=== PATIENT | male | born 1955 | race Caucasian/White ===

== ENCOUNTER → 2023-09-26 13:48 | Outpatient (REF) | payer OTHER, SELFPAY | LOC: MRI 3T 13:48 | PROVIDERS: ATTENDING PHYSICIAN Physician Assistant; FAMILY PHYSICIAN Family Medicine | DX: M54.14 Radiculopathy, thoracic region (principal) | CPT/HCPCS: 72146 ==

== ENCOUNTER 2024-04-13 09:31 | Day surgery (SDC) | payer OTHER, SELFPAY ==
[2024-04-13] VITALS (7 sets, daily range): BP systolic 128–157; BP diastolic 70–75; BMI 24.1
[2024-04-13 10:17] LABS: Hematocrit 37.3 % (39.0-52.0); Hemoglobin 12.8 g/dL (13.0-18.0); Mean Corp Hgb Conc. 34.3 g/dL (33.0-37.0); Mean Corpuscular Hgb 30.3 pg (27.0-31.0); Mean Corpuscular Volume 88.2 fL (80.0-94.0); Platelet Count 186 10^3/uL (130-400); Red Blood Cell Count 4.23 10^6/uL (4.70-6.10); Red Cell Dist. Width 14.2 % (11.5-14.5)
[2024-04-13] MEDS: BACTROBAN NASAL 1 GRAM NASAL (10:29)
[2024-04-13] MEDS: NSS 500 IV (10:30)
[2024-04-13] MEDS: PERIDEX 0.12% ORAL RINSE 15 ML PO (10:30)
--- NOTE | 2024-04-13 11:01 | W.SUR.PREOP ---
Pre-Operative Surgical Note
-
I have examined this patient prior to the performance of the scheduled procedure.
The patient's condition is unchanged from the time of the current History and
Physical and the patient is able to undergo the scheduled procedure.
[2024-04-13 11:02] LABS: Blood Urea Nitrogen 17 mg/dl (9-20); Calcium 8.6 mg/dl (8.4-10.2); Carbon Dioxide 36 mmol/L (22-30); Chloride 99 mmol/L (98-107); Estimated Creatinine Clearance 87 ml/min; Glucose 80 mg/dl (70-99); Potassium 3.7 mmol/L (3.5-5.1); Sodium 140 mmol/L (135-145); eGFR > 60.00
--- NOTE | 2024-04-13 12:38 | OR.RPT ---
Operative Report
Operative Report
Date of Operation: 04/13/2024
Pre Op Diagnosis: Symptom constellation concerning for temporal arteritis
Post Op Diagnosis: Symptom constellation concerning for temporal arteritis
Procedure: BILATERAL temporal artery biopsies
Surgeon: Markell Ortiz III, MD
Materials Scheduler: Feilx Ferrera MD PGY1
Anesthesia: Sedation/local
Complications: None
Estimated Blood Loss: Minimal
History and Indications for Procedure: 69-year-old male with symptoms concerning for temporal arteritis. We were asked to provide bilateral temporal artery biopsies.
Procedure in Detail: Enzo Kevin was correctly identified and placed supine on the operating table. After adequate induction of anesthesia the hair overlying the bilateral temporal regions was shaved. The temporal pulses were palpated
bilaterally and appropriate skin incisions were marked over the temporal pulses bilaterally. The bilateral temporal regions were then prepped and draped in the usual sterile fashion. The patient received preoperative antibiotics. A timeout
procedure was performed with the nursing and anesthesia staff confirming the patient's identity as well as the nature and laterality of the procedure.
Bilateral temporal artery biopsies were performed one at a time in the same manner as follows: Local anesthesia was infiltrated into the skin and subcutaneous tissue at the skin julienne. A skin incision was made over the temporal skin julienne.
Electrocautery and sharp dissection were used to expose the temporal artery. After adequate length of temporal artery had been exposed within the wound bed the proximal and distal ends were ligated with silk ties and small metal clips. The
intervening artery segment was transected proximally and distally and removed. The artery segment was identified according to laterality and passed off to the back table to be labeled and sent to pathology. The wound was then closely inspected for
hemostasis which was achieved. The wound was irrigated with saline solution.
Each wound was closed in layers. Skin glue was applied to each incision bilaterally.
The patient tolerated the procedure well and was taken to the recovery room in good condition.
Attestation: I was present and responsible for the entire procedure
Signed:
Markell Ortiz III, MD
[facility]
[phone] (cell)
--- NOTE | 2024-04-13 12:42 | W.IMMPOSTOP ---
Surgical Immed Post Op Note
-
Primary Surgeon: Diana
Assisting Surgeon: Maisha
Pre-op Diagnosis: Symptom constellation concerning for temporal arteritis
Post-op Diagnosis: Symptom constellation concerning for temporal arteritis
Procedure Performed: Bilateral temporal artery biopsies
Anesthesia Type: sedation/local
Specimen / Cultures: none
Estimated Blood Loss: 2 cc
Complications: None
Operative Findings: bilateral temporal artery biopsies
== END 2024-04-13 14:05 | disposition home or self-care (01) ==
LOC: CATH 09:31
PROVIDERS: Nurse Practitioner; ATTENDING PHYSICIAN Surgery Vascular Surgery; FAMILY PHYSICIAN Family Medicine
DX: R51.9 Headache, unspecified (principal); M35.3 Polymyalgia rheumatica; R42 Dizziness and giddiness; I25.10 Atherosclerotic heart disease of native coronary artery without angina pectoris; E78.5 Hyperlipidemia, unspecified
CPT/HCPCS: 37609; 88305; 80048; 85027; 88313; 93005

== ENCOUNTER → 2024-05-11 08:52 | Outpatient (REF) | payer OTHER, SELFPAY | LOC: RAD 08:52 | PROVIDERS: ATTENDING PHYSICIAN Student in an Organized Health Care Education/Training Program; FAMILY PHYSICIAN Family Medicine | DX: Z13.820 Encounter for screening for osteoporosis (principal); M85.88 Other specified disorders of bone density and structure, other site; Z91.89 Other specified personal risk factors, not elsewhere classified; Z92.241 Personal history of systemic steroid therapy; H53.8 Other visual disturbances; M35.3 Polymyalgia rheumatica; R51.9 Headache, unspecified; R79.82 Elevated C-reactive protein (CRP) | CPT/HCPCS: 77080 ==

== ENCOUNTER → 2024-09-20 12:13 | Outpatient (REF) | payer OTHER, SELFPAY | LOC: DHSLP 12:13 | PROVIDERS: ATTENDING PHYSICIAN Family Medicine | DX: G47.19 Other hypersomnia (principal); R06.83 Snoring | CPT/HCPCS: 95800 ==

== ENCOUNTER → 2024-09-30 14:52 | Outpatient (REF) | payer OTHER, SELFPAY | LOC: HWRAD 14:52 | PROVIDERS: ATTENDING PHYSICIAN Physician Assistant Medical; FAMILY PHYSICIAN Family Medicine | DX: M79.89 Other specified soft tissue disorders (principal) | CPT/HCPCS: 76536 ==

== ENCOUNTER → 2024-10-14 09:27 | Outpatient (REF) | payer OTHER, SELFPAY | LOC: RAD 09:27 | PROVIDERS: ATTENDING PHYSICIAN Physician Assistant Medical | DX: R22.1 Localized swelling, mass and lump, neck (principal) | CPT/HCPCS: 70491; Q9967 ==